=== PATIENT | male | born 1985 | race Caucasian/White ===

== ENCOUNTER 2020-03-09 18:11 | Observation (INO) ==
[2020-03-09 19:01] LABS: Basophils # 0.1 K/mcL (0.0-0.2); Basophils % 1.1 %; Eosinophils # 0.3 K/mcL (0.0-0.6); Eosinophils % 4.4 %; Hematocrit 17.7 % (37.5-50.1); Immature Granulocytes % 0.4 % (0-4); Lymphocytes # 1.2 K/mcL (0.6-4.6); Lymphocytes % 16.7 %; Mean Corpuscular HGB Conc 24.9 g/dL (31.6-35.5); Mean Corpuscular Hemoglobin 15.8 pg (28.0-33.3); Mean Corpuscular Volume 63.7 fL (83.0-100.0); Mean Platelet Volume 9.1 fL (9.4-12.4); Monocytes # 0.5 K/mcL (0.0-1.3); Monocytes % 7.1 %; Neutrophils # 4.9 K/mcL (1.6-8.9); Nucleated Red Blood Cells 5.3 /100 WBC (0); Platelet Count 801 K/mcL (140-400); Red Blood Count 2.78 M/mcL (4.19-5.50); Red Cell Distribution Width 25.7 % (11.5-14.5); Segmented Neutrophils % 70.3 %
[2020-03-09 19:09] LABS: Hemoglobin 4.4 g/dL (12.9-16.9)
[2020-03-09 19:19] LABS: Alanine Aminotransferase 13 Units/L (7-52); Albumin 3.8 g/dL (3.5-5.7); Albumin/Globulin Ratio 1.2 (1.1-2.2); Alkaline Phosphatase 62 Units/L (34-104); Aspartate Amino Transferase 13 Units/L (13-39); BUN/Creatinine Ratio 8 (6-26); Bilirubin,Direct 0.1 mg/dL (0.0-0.2); Bilirubin,Indirect 0.2 mg/dL (0.0-1.0); Bilirubin,Total 0.3 mg/dL (0.3-1.0); Blood Urea Nitrogen 7 mg/dL (6-20); Calcium 8.9 mg/dL (8.6-10.3); Carbon Dioxide 23 mEq/L (23-29); Chloride 105 mEq/L (98-107); Globulin 3.1 g/dL (2.4-3.5); Glucose 131 mg/dL (70-105); Osmolality,Calculated 284 (280-300); Potassium 3.7 mEq/L (3.5-5.1); Sodium 137 mEq/L (136-145); Total Protein 6.9 g/dL (6.4-8.9); eGFR For African Americans > 60 (> 60); eGFR For Non-African Americans > 60 (> 60)
[2020-03-09 19:26] LABS: Anisocytosis 3+ (Not Present); Burr Cells 1+ (Not Present); Hypochromasia Present (Not Present); Schistocytes 1+ (Not Present)
[2020-03-09 19:27] LABS: Large Platelets Present (Not Present); Platelet Estimate Marked Increase (Normal)
[2020-03-09 19:28] LABS: Stomatocytes 1+ (Not Present)
[2020-03-09] MEDS ORDERED: Pantoprazole 40 MG VIAL IVP ONE (19:35)
[2020-03-09] MEDS ORDERED: Isovue-370 500 ML BOTTLE IVP ONE (19:35)
[2020-03-09] MEDS ORDERED: 0.9 % Sodium Chloride 250 ML ONE ×2 (19:55→22:14)
[2020-03-09 20:09] LABS: INR 1.3; Prothrombin Time 14.4 Seconds (9.4-12.1)
[2020-03-09] MEDS: 0.9 % Sodium Chloride 1,000 ML IVC SCH (20:09)
[2020-03-09 20:12] LABS: Activated Partial Thrombo Time 29.9 Seconds (26.0-36.0)
[2020-03-09] MEDS ORDERED: Acetaminophen 325 MG TABLET PO PRN (20:30)
[2020-03-09] MEDS ORDERED: Ondansetron ODT 4 MG TAB.RAPDIS SL PRN (20:30)
[2020-03-09] MEDS ORDERED: Naloxone 0.4 MG/ML INJ IVP PRN (20:30)
[2020-03-09 22:09] LABS: Immature Reticulocyte % 32.6 % (11.0-38.0); Retculocyte # 0.14 M/mcL (0.05-0.10); Reticulocyte % 5.1 % (1.6-2.8)
[2020-03-09 22:32] LABS: Iron < 10 mcg/dL (65-175); Transferrin 368 mg/dL (203-362)
[2020-03-10 00:50] LABS: Adenovirus Not Detected (Not Detect); Bordetella Pertussis Not Detected (Not Detect); Chlamydophila pneumoniae Not Detected (Not Detect); Coronavirus 229E Not Detected (Not Detect); Coronavirus HKU1 Not Detected (Not Detect); Coronavirus NL63 Not Detected (Not Detect); Coronavirus OC43 Not Detected (Not Detect); Human Metapneumovirus Not Detected (Not Detect); Human Rhinovirus/Enterovirus Not Detected (Not Detect); Influenza A Subtype 2009 H1 Not Detected (Not Detect); Influenza B Not Detected (Not Detect); Mycoplasma pneumoniae Not Detected (Not Detect); Parainfluenza Virus 1 Not Detected (Not Detect); Parainfluenza Virus 2 Not Detected (Not Detect); Parainfluenza Virus 3 Not Detected (Not Detect); Parainfluenza Virus 4 Not Detected (Not Detect); Respiratory Syncytial Virus Not Detected (Not Detect); SARS-CoV-2 Not Detected (Not Detect)
[2020-03-10] MEDS: 0.9 % Sodium Chloride 1,000 ML IVC SCH ×2 (01:39→18:57)
[2020-03-10 03:40] LABS: Immature Granulocytes % 0.2 % (0-4); Mean Platelet Volume 8.8 fL (9.4-12.4)
[2020-03-10 03:41] LABS: Basophils # 0.1 K/mcL (0.0-0.2); Basophils % 1.7 %; Eosinophils # 0.5 K/mcL (0.0-0.6); Eosinophils % 8.2 %; Hematocrit 20.5 % (37.5-50.1); Lymphocytes # 1.3 K/mcL (0.6-4.6); Lymphocytes % 20.5 %; Mean Corpuscular HGB Conc 26.8 g/dL (31.6-35.5); Mean Corpuscular Hemoglobin 18.1 pg (28.0-33.3); Mean Corpuscular Volume 67.4 fL (83.0-100.0); Monocytes # 0.9 K/mcL (0.0-1.3); Monocytes % 13.5 %; Neutrophils # 3.6 K/mcL (1.6-8.9); Nucleated Red Blood Cells 5.4 /100 WBC (0); Platelet Count 734 K/mcL (140-400); Red Blood Count 3.04 M/mcL (4.19-5.50); Segmented Neutrophils % 55.9 %; White Blood Count 6.5 K/mcL (4.3-11.1)
[2020-03-10 03:51] LABS: INR 1.2; Prothrombin Time 14.2 Seconds (9.4-12.1)
[2020-03-10 03:57] LABS: Hemoglobin 5.5 g/dL (12.9-16.9)
[2020-03-10 04:09] LABS: BUN/Creatinine Ratio 8 (6-26); Blood Urea Nitrogen 6 mg/dL (6-20); Calcium 8.7 mg/dL (8.6-10.3); Carbon Dioxide 22 mEq/L (23-29); Chloride 108 mEq/L (98-107); Glucose 85 mg/dL (70-105); Osmolality,Calculated 285 (280-300); Phosphorous 3.2 mg/dL (2.7-4.5); Potassium 4.1 mEq/L (3.5-5.1); Sodium 139 mEq/L (136-145); eGFR For African Americans > 60 (> 60); eGFR For Non-African Americans > 60 (> 60)
[2020-03-10 04:14] LABS: Thyroid Stimulating Hormone 0.805 mcIU/mL (0.340-5.600)
[2020-03-10] MEDS ORDERED: 0.9 % Sodium Chloride 250 ML IVC SCH (04:15)
[2020-03-10 04:21] LABS: Ferritin < 8 ng/mL (20-250)
[2020-03-10 04:22] LABS: Anisocytosis 2+ (Not Present); Hypochromasia Present (Not Present); Microcytosis Present (Not Present); Poikilocytosis 2+ (Not Present)
[2020-03-10 04:23] LABS: Folate 18.2 ng/mL (3.0-16.0); Platelet Estimate Marked Increase (Normal); Polychromasia 1+ (Not Present); Target Cells 1+ (Not Present)
[2020-03-10] MEDS ORDERED: Pantoprazole 40 MG VIAL IVP SCH (06:00)
[2020-03-10] MEDS ORDERED: Iron Sucrose Complex 400 MG in 0.9 % Sodium Chloride 250 ML IVPB ONE (07:50)
[2020-03-10] MEDS ORDERED: Cyanocobalamin (B-12) 1,000 MCG/ML VIAL IM ONE (07:58)
[2020-03-10] MEDS ORDERED: Octreotide 400 MCG in 0.9 % Sodium Chloride 100 ML IVC SCH (08:00)
[2020-03-10 09:45] LABS: Hematocrit 23.2 % (37.5-50.1); Mean Platelet Volume 8.8 fL (9.4-12.4); Red Cell Distribution Width 29.1 % (11.5-14.5)
[2020-03-10 09:46] LABS: Hemoglobin 6.3 g/dL (12.9-16.9); Mean Corpuscular HGB Conc 27.2 g/dL (31.6-35.5); Mean Corpuscular Hemoglobin 18.8 pg (28.0-33.3); Nucleated Red Blood Cells 6.3 /100 WBC (0); Platelet Count 736 K/mcL (140-400); Red Blood Count 3.36 M/mcL (4.19-5.50)
[2020-03-10 09:57] LABS: Neutrophils # 3.2 K/mcL (1.6-8.9)
[2020-03-10] MEDS ORDERED: Metoclopramide 10 MG/2 ML VIAL IVP ONE (10:31)
[2020-03-10 10:41] LABS: Basophils # 0.4 K/mcL (0.0-0.2); Eosinophils # 0.5 K/mcL (0.0-0.6); Lymphocytes # 0.6 K/mcL (0.6-4.6); Monocytes # 0.3 K/mcL (0.0-1.3)
[2020-03-10 10:46] LABS: Acanthocytes 1+ (Not Present); Anisocytosis 3+ (Not Present); Hypochromasia Present (Not Present); Microcytosis Present (Not Present); Platelet Estimate Marked Increase (Normal)
[2020-03-10 10:47] LABS: Target Cells 1+ (Not Present)
[2020-03-10 10:51] LABS: Polychromasia 1+ (Not Present); Schistocytes 1+ (Not Present)
[2020-03-10] MEDS: cefTRIAXone 2,000 MG in Water for inj. (sterile) 20 ML IVP SCH (11:25)
[2020-03-10] MEDS ORDERED: Lidocaine -MPF 2% 2 ML VIAL ONE (12:52)
[2020-03-10] MEDS: Pantoprazole 40 MG in 0.9 % Sodium Chloride Mini Bag 100 ML IVC SCH ×2 (14:14→21:26)
[2020-03-10 19:25] LABS: Hemoglobin 7.3 g/dL (12.9-16.9); Mean Corpuscular Volume 71.4 fL (83.0-100.0); Platelet Count 702 K/mcL (140-400)
[2020-03-10 19:27] LABS: Hematocrit 26.4 % (37.5-50.1); Mean Corpuscular HGB Conc 27.7 g/dL (31.6-35.5); Mean Corpuscular Hemoglobin 19.7 pg (28.0-33.3); Mean Platelet Volume 8.7 fL (9.4-12.4)
[2020-03-11] MEDS: Pantoprazole 40 MG in 0.9 % Sodium Chloride Mini Bag 100 ML IVC SCH ×3 (03:02→07:57)
[2020-03-11] MEDS: 0.9 % Sodium Chloride 1,000 ML IVC SCH ×4 (03:03→10:40)
[2020-03-11 04:09] LABS: Mean Platelet Volume 8.8 fL (9.4-12.4)
[2020-03-11 04:11] LABS: Hematocrit 25.5 % (37.5-50.1); Mean Corpuscular HGB Conc 27.5 g/dL (31.6-35.5); Mean Corpuscular Hemoglobin 19.4 pg (28.0-33.3); Mean Corpuscular Volume 70.8 fL (83.0-100.0); Platelet Count 737 K/mcL (140-400); White Blood Count 7.8 K/mcL (4.3-11.1)
[2020-03-11 04:22] LABS: BUN/Creatinine Ratio 6 (6-26); Blood Urea Nitrogen 5 mg/dL (6-20); Calcium 8.6 mg/dL (8.6-10.3); Carbon Dioxide 23 mEq/L (23-29); Chloride 111 mEq/L (98-107); Glucose 87 mg/dL (70-105); Osmolality,Calculated 289 (280-300); Potassium 3.8 mEq/L (3.5-5.1); Sodium 141 mEq/L (136-145); eGFR For African Americans > 60 (> 60); eGFR For Non-African Americans > 60 (> 60)
[2020-03-11] MEDS ORDERED: 0.9 % Sodium Chloride 250 ML ONE (09:11)
[2020-03-11] MEDS ORDERED: *HR* Propofol 200 MG/20 ML VIAL IVP ONE (13:56)
[2020-03-11] MEDS ORDERED: Lidocaine -MPF 2% 2 ML VIAL ONE (13:57)
[2020-03-11] MEDS: cefTRIAXone 2,000 MG in Water for inj. (sterile) 20 ML IVP SCH (14:49)
[2020-03-11 15:54] VITALS: BP 123/70
[2020-03-11 16:11] LABS: INR 1.3; Prothrombin Time 14.5 Seconds (9.4-12.1)
[2020-03-11 16:13] LABS: Activated Partial Thrombo Time 30.5 Seconds (26.0-36.0)
== END 2020-03-11 16:41 | disposition home or self-care (01) ==
LOC: 2ANU 18:11 → EMEROOARM 18:11 → 2ANU 21:13
PROVIDERS: ADMIT Student in an Organized Health Care Education/Training Program; ATTEND Student in an Organized Health Care Education/Training Program